=== PATIENT | female | born 1970 | race Two or more races ===

== ENCOUNTER 2017-02-13 20:07 | Emergency (ER) | payer OTHER ==
[~2017-02-13] VITALS: Ht 157.5 cm; Wt 68.0 kg
[2017-02-13 20:08] VITALS: BP 150/90
[2017-02-13] MEDS ORDERED: Ketorolac 30mg Inj IV ONE (21:00)
[2017-02-13 21:39] LABS: BASOPHILS % (AUTO) 0.6 % (0.0-2.0); LYMPHOCYTES % (AUTO) 28.1 % (20.0-45.0); MEAN CORPUSCULAR HEMOGLOBIN 33.4 PG (27.0-31.0); MEAN CORPUSCULAR HGB CONC 35.2 G/DL (32.0-36.0); MEAN CORPUSCULAR VOLUME 95 FL (80-99); MONOCYTES % (AUTO) 6.5 % (1.0-10.0); NEUTROPHILS % (AUTO) 64.8 % (45.0-75.0); PLATELET COUNT 349 K/UL (150-450); RED BLOOD COUNT 3.76 M/UL (4.20-5.40); RED CELL DISTRIBUTION WIDTH 11.8 % (11.6-14.8)
[2017-02-13 21:52] LABS: ALANINE AMINOTRANSFERASE 16 U/L (3-33); ALBUMIN/GLOBULIN RATIO 1.4 (1.0-2.7); ANION GAP 12 (5-15); ASPARTATE AMINO TRANSFERASE 17 U/L (5-40); CALCIUM 9.6 mg/dL (8.6-10.2); CARBON DIOXIDE 26 mEQ/L (20-30); CHLORIDE 99 mEQ/L (98-107); CREATININE 0.8 mg/dL (0.5-0.9); GLOMERULAR FILTRATION RATE > 60 mL/min (>60); HEMOLYSIS 5; POTASSIUM 4.1 mEQ/L (3.4-4.9); SODIUM 137 mEQ/L (135-145); TOTAL PROTEIN 7.2 g/dL (6.6-8.7)
[2017-02-13 22:00] LABS: TROPONIN I < 0.30 ng/mL (<=0.30)
[2017-02-13 22:02] LABS: CKMB 2.2 ng/mL (< 3.8)
[2017-02-13] MEDS ORDERED: Albuterol ud Inhalation HHN ONE (23:00)
[2017-02-13] MEDS ORDERED: Norco 5mg/325mg tab ORAL ONE (23:00)
--- NOTE | 2017-02-13 23:49 | Emergency Room Report ---
History of Present Illness General Chief Complaint: Pain Source: Patient, EMS Present Illness HPI This patient presents with right leg pain and coughing. The patient states that her right leg has felt painful for the past week. She's been many different hospitals for assessment for this. She also has a recurrent and repetitive cough. She denies abdominal pain. She denies nausea or vomiting. She fever chills. She has no other placed. Allergies: Coded Allergies: No Known Allergies (Unverified , 02/13/17) Patient History Past Medical History: see triage record, DM, HTN, CVA/TIA Social History: Denies: smoking, alcohol use, drug use Reviewed Nursing Documentation: PMH: Agreed, PSxH: Agreed Nursing Documentation-PMH Hx Hypertension: Yes Hx Diabetes: Yes Hx Cerebrovascular Accident: Yes - TIA Review of Systems All Other Systems: negative except mentioned in HPI Physical Exam Vital Signs Date Time Temp Pulse Resp B/P (MAP) Pulse Ox O2 Delivery O2 Flow Rate FiO2 02/13/17 20:03 99.1 123 20 150/90 99 Room Air Sp02 EP Interpretation: reviewed, normal General Appearance: no apparent distress, alert, GCS 15, non-toxic Head: normocephalic, atraumatic Eyes: bilateral eye normal inspection, bilateral eye PERRL ENT: hearing grossly normal, normal pharynx, no angioedema, normal voice Neck: full range of motion, supple/symm/no masses Respiratory: chest non-tender, lungs clear, normal breath sounds, speaking full sentences Cardiovascular #1: regular rate, rhythm, no edema Gastrointestinal: normal bowel sounds, non tender, soft, non-distended, no guarding, no rebound Rectal: deferred Musculoskeletal: back normal, gait/station normal, normal range of motion, non- tender Neurologic: alert, oriented x3, responsive, motor strength/tone normal, sensory intact, speech normal Psychiatric: judgement/insight normal, memory normal, mood/affect normal, no suicidal/homicidal ideation Skin: normal color, no rash, warm/dry, well hydrated Medical Decision Making Diagnostic Impression: Primary Impression: Leg pain Additional Impressions: Cough Chest pain ER Course Patient presents with cough, chest pain and right leg pain. She underwent ultrasound of the right lower extremity and is no evidence of DVT. Chest x-ray shows some scattered nodular findings that are nonspecific. Given the patient' s ongoing cough and chest pain, I will go ahead and order a CT of the chest. The patient's EKG has a sinus tachycardia. Patient is pending CTA of the chest. Final disposition per Dr. Mota. Plan for discharge home with acid reflux medication and cough medication if CT is negative. Laboratory Tests Test 02/13/17 21:15 White Blood Count 10.0 K/UL (4.8-10.8) Red Blood Count 3.76 M/UL (4.20-5.40) L Hemoglobin 12.6 G/DL (12.0-16.0) Hematocrit 35.7 % (37.0-47.0) L Mean Corpuscular Volume 95 FL (80-99) Mean Corpuscular Hemoglobin 33.4 PG (27.0-31.0) H Mean Corpuscular Hemoglobin Concent 35.2 G/DL (32.0-36.0) Red Cell Distribution Width 11.8 % (11.6-14.8) Platelet Count 349 K/UL (150-450) Mean Platelet Volume 6.0 FL (6.5-10.1) L Neutrophils (%) (Auto) 64.8 % (45.0-75.0) Lymphocytes (%) (Auto) 28.1 % (20.0-45.0) Monocytes (%) (Auto) 6.5 % (1.0-10.0) Eosinophils (%) (Auto) 0.0 % (0.0-3.0) Basophils (%) (Auto) 0.6 % (0.0-2.0) Sodium Level 137 mEQ/L (135-145) Potassium Level 4.1 mEQ/L (3.4-4.9) Chloride Level 99 mEQ/L (98-107) Carbon Dioxide Level 26 mEQ/L (20-30) Anion Gap 12 (5-15) Blood Urea Nitrogen 12 mg/dL (7-23) Creatinine 0.8 mg/dL (0.5-0.9) Estimate Glomerular Filtration Rate > 60 mL/min (>60) Glucose Level 141 mg/dL (74-106) H Calcium Level 9.6 mg/dL (8.6-10.2) Total Bilirubin 0.3 mg/dL (0.0-1.2) Aspartate Amino Transferase (AST) 17 U/L (5-40) Alanine Aminotransferase (ALT) 16 U/L (3-33) Alkaline Phosphatase 59 U/L (35-104) Total Creatine Kinase 79 U/L (26-140) Creatine Kinase MB 2.2 ng/mL (< 3.8) Creatine Kinase MB Relative Index 2.7 Troponin I < 0.30 ng/mL (<=0.30) Total Protein 7.2 g/dL (6.6-8.7) Albumin 4.3 g/dL (3.5-5.2) Globulin 2.9 g/dL Albumin/Globulin Ratio 1.4 (1.0-2.7) EKG Diagnostic Results Rate: tachycardiac Rhythm: other ST Segments: no acute changes Other Impression S.tachycardia Rhythm Strip Diag. Results EP Interpretation: yes Rate: 110's Rhythm: no PVC's, no ectopy Chest X-Ray Diagnostic Results Chest X-Ray Diagnostic Results : Chest X-Ray Ordered: Yes # of Views/Limited/Complete: 1 View Indication: Chest Pain EP Interpretation: Yes Interpretation: other Impression: Other Electronically Signed by: Patchy bilateral opacities/prominence. CT/MRI/US Diagnostic Results CT/MRI/US Diagnostic Results : Imaging Test Ordered: RLE US Impression No DVT Last Vital Signs Date Time Temp Pulse Resp B/P (MAP) Pulse Ox O2 Delivery O2 Flow Rate FiO2 02/13/17 23:32 113 20 99 Room Air 02/13/17 21:53 99.2 02/13/17 20:08 150/90 Referrals: [facility],REFERRING (PCP) MARITZA WATSON D.O. Feb 13, 2017 23:49
[2017-02-14] MEDS ORDERED: Promethazine/Codeine 5ml UD ORAL ONE (00:15)
[2017-02-14] MEDS ORDERED: Promethazine/Codeine 5ml UD ONE (00:20)
[2017-02-14 01:21] LABS: APPEARANCE,URINE SLIGHTLY CLOUDY; KETONES,URINE NEGATIVE (NEGATIVE); LEUKOCYTE ESTERASE ,URINE 1+ (NEGATIVE); NITRITE,URINE NEGATIVE (NEGATIVE); PH,URINE 5 (4.5-8.0); PROTEIN,URINE 1+ (NEGATIVE); UROBILINOGEN,URINE NORMAL MG/DL (0.0-1.0)
[2017-02-14 01:58] LABS: BACTERIA,URINE MODERATE /HPF; RBC,URINE 0-2 /HPF (0 - 2); SQUAMOUS EPITHELIAL CELL,UR MANY /LPF (NONE/OCC)
[2017-02-14] MEDS ORDERED: LORazepam Inj 2mg/ml 1ml IV ONE (02:45)
[2017-02-14] MEDS ORDERED: HYDROmorphone 1 MG, DiphenhydrAMINE 25 MG in NS 55 ML IV ONE (02:45)
[2017-02-14] MEDS ORDERED: LORazepam Inj 2mg/ml 1ml ONE (03:05)
[2017-02-14] MEDS ORDERED: DiphenhydrAMINE 50mg/ml Inj ONE (03:05)
[2017-02-14] MEDS ORDERED: HYDROmorphone 1mg/ml Carpuject ONE (03:05)
[2017-02-14 03:30] VITALS: BP 144/70
[2017-02-14 04:20] VITALS: BP 125/63
--- NOTE | 2017-02-14 05:35 | Emergency Room Report ---
History of Present Illness General Chief Complaint: Pain Source: Patient, EMS Present Illness Allergies: Coded Allergies: No Known Allergies (Unverified , 02/13/17) Nursing Documentation-PMH Hx Hypertension: Yes Hx Diabetes: Yes Hx Cerebrovascular Accident: Yes - TIA Physical Exam Vital Signs Date Time Temp Pulse Resp B/P (MAP) Pulse Ox O2 Delivery O2 Flow Rate FiO2 02/13/17 20:03 99.1 123 20 150/90 99 Room Air Medical Decision Making Diagnostic Impression: Primary Impression: Leg pain Additional Impressions: Cough Chest pain Neuropathy Pulmonary congestion ER Course Please refer to the initial note for the history examined the presentation at this time patient had CAT scan imaging ordered and signed out for further followup Patient's CAT scan reveals no evidence of PE the radiologist did make a mention of interstitial pulmonary edema no obvious pneumothorax or cardiomegaly Patient reevaluated and was tearful complaining of neuropathy and pain to her lower extremities she feels that there is increased swelling compared to previous Patient also reports a breathing discomfort with some shortness of breath Specially exertional/positional in nature Given these findings the patient's lack of any previous history I felt that further inpatient workup was required including cardiac ultrasonography Patient was provided with pain medication small amount of diuretics At this time requires further inpatient care Labs Test 02/13/17 21:15 02/14/17 00:30 02/14/17 02:45 White Blood Count 10.0 K/UL (4.8-10.8) Red Blood Count 3.76 M/UL (4.20-5.40) Hemoglobin 12.6 G/DL (12.0-16.0) Hematocrit 35.7 % (37.0-47.0) Mean Corpuscular Volume 95 FL (80-99) Mean Corpuscular Hemoglobin 33.4 PG (27.0-31.0) Mean Corpuscular Hemoglobin Concent 35.2 G/DL (32.0-36.0) Red Cell Distribution Width 11.8 % (11.6-14.8) Platelet Count 349 K/UL (150-450) Mean Platelet Volume 6.0 FL (6.5-10.1) Neutrophils (%) (Auto) 64.8 % (45.0-75.0) Lymphocytes (%) (Auto) 28.1 % (20.0-45.0) Monocytes (%) (Auto) 6.5 % (1.0-10.0) Eosinophils (%) (Auto) 0.0 % (0.0-3.0) Basophils (%) (Auto) 0.6 % (0.0-2.0) Sodium Level 137 mEQ/L (135-145) Potassium Level 4.1 mEQ/L (3.4-4.9) Chloride Level 99 mEQ/L (98-107) Carbon Dioxide Level 26 mEQ/L (20-30) Anion Gap 12 (5-15) Blood Urea Nitrogen 12 mg/dL (7-23) Creatinine 0.8 mg/dL (0.5-0.9) Estimat Glomerular Filtration Rate > 60 mL/min (>60) Glucose Level 141 mg/dL (74-106) Calcium Level 9.6 mg/dL (8.6-10.2) Total Bilirubin 0.3 mg/dL (0.0-1.2) Aspartate Amino Transf (AST/SGOT) 17 U/L (5-40) Alanine Aminotransferase (ALT/SGPT) 16 U/L (3-33) Alkaline Phosphatase 59 U/L (35-104) Total Creatine Kinase 79 U/L (26-140) Creatine Kinase MB 2.2 ng/mL (< 3.8) Creatine Kinase MB Relative Index 2.7 Troponin I < 0.30 ng/mL (<=0.30) Total Protein 7.2 g/dL (6.6-8.7) Albumin 4.3 g/dL (3.5-5.2) Globulin 2.9 g/dL Albumin/Globulin Ratio 1.4 (1.0-2.7) Urine Color Pale yellow Urine Appearance Slightly cloudy Urine pH 5 (4.5-8.0) Urine Specific [place] 1.010 (1.005-1.035) Urine Protein 1+ (NEGATIVE) Urine Glucose (UA) Negative (NEGATIVE) Urine Ketones Negative (NEGATIVE) Urine Occult Blood Negative (NEGATIVE) Urine Nitrite Negative (NEGATIVE) Urine Bilirubin Negative (NEGATIVE) Urine Urobilinogen Normal MG/DL (0.0-1.0) Urine Leukocyte Esterase 1+ (NEGATIVE) Urine RBC 0-2 /HPF (0 - 2) Urine WBC 2-4 /HPF (0 - 2) Urine Squamous Epithelial Cells Many /LPF (NONE/OCC) Urine Bacteria Moderate /HPF (NONE) Urine Opiates Screen Positive (NEGATIVE) Urine Barbiturates Screen Negative (NEGATIVE) Phencyclidine (PCP) Screen Negative (NEGATIVE) Urine Amphetamines Screen Negative (NEGATIVE) Urine Benzodiazepines Screen Negative (NEGATIVE) Urine Cocaine Screen Negative (NEGATIVE) Urine Marijuana (THC) Screen Negative (NEGATIVE) Pro-B-Type Natriuretic Peptide 339 pg/mL (0-125) EKG Diagnostic Results Rate: normal Rhythm: NSR ST Segments: other - nonspecific ST and T-wave changes Rhythm Strip Diag. Results EP Interpretation: yes Rate: 66 Rhythm: NSR, no PVC's, no ectopy Chest X-Ray Diagnostic Results Chest X-Ray Diagnostic Results : Chest X-Ray Ordered: Yes # of Views/Limited/Complete: 1 View EP Interpretation: Yes Interpretation: no consolidation, no pneumothorax, other - Appearance of pulmonary congestion versus interstitial disease Impression: Other - interstitial disease Electronically Signed by: Bernice Nur DO CT/MRI/US Diagnostic Results CT/MRI/US Diagnostic Results : Impression CT chest no PE, small pleural effusions interstitial pulmonary edema suspected Last Vital Signs Date Time Temp Pulse Resp B/P (MAP) Pulse Ox O2 Delivery O2 Flow Rate FiO2 02/14/17 04:20 105 14 125/63 98 Room Air 02/14/17 03:42 97.9 Status: improved Disposition: XFER SHT-TRM HOSP Condition: Improved Referrals: [facility],REFERRING (PCP) BERNICE NUR D.O. Feb 14, 2017 05:35
[2017-02-14 07:45] VITALS: BP 161/77
[2017-02-14] MEDS ORDERED: Norco 5mg/325mg tab ORAL ONE (07:45)
[2017-02-14 08:16] VITALS: BP 145/79
[2017-02-14 09:07] VITALS: BP 145/79
--- NOTE | 2017-02-14 09:16 | Diagnostic Imaging Report ---
ndication: Shortness of breath, coughing Technique: IV administration nonionic contrast. Spiral acquisitions obtained from the lung bases to the lung apices. Multiplanar and 3-D reconstructions were generated. Total dose length product 759 mGycm. CTDIvol(s) 12, 12, 37, 22 mGy. Dose reduction achieved using automated exposure control Comparison: None Findings: Pulmonary arterial opacification is adequate. No intraluminal filling defects or other findings to suggest acute pulmonary embolus demonstrated. No intraluminal filling defects or other findings to suggest acute pulmonary embolus demonstrated. No evidence of thoracic aortic aneurysm or dissection. Normal costophrenic anatomy of the great neck vessels. Normal caliber pulmonary arteries. Upper limits normal heart size. No evidence of right ventricular dilatation. There is a small right and trace left pleural effusion. There is diffuse interstitial septal thickening. No focal airspace consolidation. No masses or nodules No pericardial effusion. No mediastinal hilar mass or adenopathy. There is equivocally diffuse mild esophageal wall thickening. No axillary or chest wall mass or adenopathy. Visualized portions of the thyroid are unremarkable. The included in the upper abdominal anatomy is unremarkable. Impression: Negative for evidence of acute pulmonary embolus Small right, trace left pleural effusions. Diffuse bilateral interstitial septal thickening. Above findings suggest mild congestive heart failure This agrees with the preliminary interpretation provided overnight by [facility] teleradiology service. The CT scanner at [facility] is accredited by the [employer] and the scans are performed using protocols designed to limit radiation exposure to as low as reasonably achievable to attain images of sufficient resolution adequate for diagnostic evaluation.
--- NOTE | 2017-02-14 11:13 | Diagnostic Imaging Report ---
Indication: SOB Technique: One view of the chest Comparison: none Findings: There is mild bilateral diffuse interstitial disease and central bronchial wall thickening. The heart size is normal. No focal airspace consolidation. No effusions. Impression: Bilateral diffuse interstitial disease, acuity indeterminate. Suspect on the basis of mild interstitial edema but other etiologies possible This agrees with the preliminary interpretation provided by the emergency room physician
--- NOTE | 2017-02-14 15:46 | Cardiology Report ---
APPROVED REPORT EKG Measurement Heart [id number] Normal sinus rhythm Normal ECG
--- NOTE | 2017-02-14 15:52 | Cardiology Report ---
APPROVED REPORT EKG Measurement Heart [id number] [place] [id number] Sinus tachycardia Rightward axis Borderline ECG
--- NOTE | 2017-02-15 14:43 | Diagnostic Imaging Report ---
APPROVED REPORT CPT Code: 94779 Present Symptoms Lower Extremity Pain: Right Lower Extremity Edema: Right RIGHT LEG: Venous imaging reveals a patent deep venous system. There is no evidence of thrombus within the femoral, popliteal or tibial segments. The greater saphenous vein is also within normal limits. Doppler indicates normal spontaneous flow within these segments.
== END 2017-02-14 09:08 | disposition short-term general hospital (02) ==
LOC: EDBD 20:07 → EMR 20:58
DX: M79.604 Pain in right leg (principal); R05 Cough; R07.9 Chest pain, unspecified; I10 Essential (primary) hypertension; E11.9 Type 2 diabetes mellitus without complications; Z86.73 Personal history of transient ischemic attack (TIA), and cerebral infarction without residual deficits
CPT/HCPCS: 36415; 71010; 71275; 80053; 80300; 81003; 82550; 82553; 83880; 84484; 85025; 87086; 93005; 93971; 94640; 94664; 96365; 96375; 99285; J1170; J1200; J1885; J1940; Q9967

== ENCOUNTER 2017-07-01 10:44 | Emergency (ER) | payer OTHER ==
[2017-07-01] VITALS (7 sets, daily range): BP systolic 144–193; BP diastolic 82–103
[~2017-07-01] VITALS: Ht 154.9 cm; Wt 74.8 kg
[2017-07-01] MEDS ORDERED: Sodium Chloride 500ML 500 ML IV ONE (11:03)
[2017-07-01] MEDS ORDERED: DiphenhydrAMINE 50mg/ml Inj IVP ONE (11:15)
[2017-07-01] MEDS ORDERED: Solu-MEDROL 125mg Inj IVP ONE (11:15)
[2017-07-01] MEDS ORDERED: BACLOFEN10 MG ORAL (11:16)
[2017-07-01] MEDS ORDERED: METOPROLOL TART50 M1 ORAL (11:16)
[2017-07-01] MEDS ORDERED: IBUPROFEN600 MG ORAL (11:16)
[2017-07-01] MEDS ORDERED: ATORVASTATIN CA40 MG ORAL (11:16)
[2017-07-01] MEDS ORDERED: CYCLOBENZAPRINE10 MG ORAL (11:16)
[2017-07-01] MEDS ORDERED: OXYCODONE HCL30 MG ORAL (11:16)
[2017-07-01] MEDS ORDERED: AMITRIPTYLINE75 MG ORAL (11:16)
[2017-07-01] MEDS ORDERED: HYDROCODON-ACE1 EA15 ORAL (11:16)
[2017-07-01] MEDS ORDERED: LYRICA100 MG ORAL (11:16)
[2017-07-01] MEDS ORDERED: BASAGLAR K100 UNIT/1 SQ (11:16)
[2017-07-01] MEDS ORDERED: NAPROXEN375 M2 ORAL (11:16)
[2017-07-01] MEDS ORDERED: CYMBALTA60 MG ORAL (11:16)
[2017-07-01] MEDS ORDERED: traMADol 50mg tab ORAL ONE (11:45)
[2017-07-01 11:47] LABS: APPEARANCE,URINE SLIGHTLY CLOUDY; BILIRUBIN, URINE NEGATIVE (NEGATIVE); COLOR,URINE PALE YELLOW; GLUCOSE, URINE (UA) NEGATIVE (NEGATIVE); KETONES,URINE NEGATIVE (NEGATIVE); LEUKOCYTE ESTERASE ,URINE 1+ (NEGATIVE); NITRITE,URINE NEGATIVE (NEGATIVE); PH,URINE 6 (4.5-8.0); PROTEIN,URINE 1+ (NEGATIVE); UROBILINOGEN,URINE NORMAL MG/DL (0.0-1.0)
[2017-07-01 11:55] LABS: BASOPHILS % (AUTO) 0.6 % (0.0-2.0); EOSINOPHILS % (AUTO) 0.1 % (0.0-3.0); HEMATOCRIT 32.5 % (37.0-47.0); HEMOGLOBIN 10.8 G/DL (12.0-16.0); LYMPHOCYTES % (AUTO) 25.2 % (20.0-45.0); MEAN CORPUSCULAR VOLUME 88 FL (80-99); MONOCYTES % (AUTO) 7.7 % (1.0-10.0); NEUTROPHILS % (AUTO) 66.4 % (45.0-75.0); PLATELET COUNT 420 K/UL (150-450); RED BLOOD COUNT 3.69 M/UL (4.20-5.40); RED CELL DISTRIBUTION WIDTH 12.7 % (11.6-14.8); WHITE BLOOD COUNT 6.9 K/UL (4.8-10.8)
--- NOTE | 2017-07-01 11:59 | Diagnostic Imaging Report ---
Indication: Reason For Exam: SOB Technique: XRAY Chest 1v Comparison: 02/13/2017. Findings: The cardiomediastinal silhouette is normal. The lungs are clear. There is no evidence of pleural fluid. The bones are unremarkable. Impression: Normal chest.
[2017-07-01 12:01] LABS: ANION GAP 6 mmol/L (5-15); BLOOD UREA NITROGEN 6 mg/dL (7-18); CALCIUM 8.9 MG/DL (8.5-10.1); CARBON DIOXIDE 29 MMOL/L (21-32); CHLORIDE 105 MMOL/L (98-107); CREATININE 0.7 MG/DL (0.55-1.30); POTASSIUM 4.2 MMOL/L (3.5-5.1); SODIUM 140 MMOL/L (136-145)
[2017-07-01 12:15] LABS: ALANINE AMINOTRANSFERASE 18 U/L (12-78); ALBUMIN 2.7 G/DL (3.4-5.0); ALBUMIN/GLOBULIN RATIO 0.7 (1.0-2.7); ALKALINE PHOSPHATASE 86 U/L (46-116); ASPARTATE AMINO TRANSFERASE 16 U/L (15-37); BILIRUBIN,TOTAL 0.2 MG/DL (0.2-1.0); CKMB 0.7 NG/ML (0.0-3.6); CREATINE KINASE 55 U/L (26-308)
[2017-07-01] MEDS ORDERED: Lyrica 50mg cap ORAL ONE (13:00)
[2017-07-01] MEDS ORDERED: Norco 5mg/325mg tab ORAL ONE (14:15)
--- NOTE | 2017-07-01 14:20 | Emergency Room Report ---
History of Present Illness General Chief Complaint: General Complaint Source: Patient, Medical Record Present Illness HPI 47-year-old female presents ED for evaluation. Patient states she is experiencing facial swelling and shortness of breath. She says she was recently prescribed oxycodone by her PMD. Patient has history of fibromyalgia. States that the symptoms started shortly after taking the oxycodone. Denies any known food or drug allergies. Denies any chest pain. Patient's history of hypertension diabetes. Also complaining of generalized body pain which is typical of her fibromyalgia. Throbbing, 8/10, nonradiating. Patient states she was recently admitted for chest pain and another hospital and also has similar swelling to her face and hands. Patient does not know the reason why. No aggravating or leading factors. Denies any other associated symptoms Allergies: Coded Allergies: No Known Allergies (Unverified , 02/13/17) Patient History Past Medical History: DM, HTN, CVA/TIA Past Surgical History: none Pertinent Family History: none Social History: Denies: smoking, alcohol use, drug use Last Menstrual Period: 06/15/17 Now: No Immunizations: UTD Reviewed Nursing Documentation: PMH: Agreed, PSxH: Agreed Nursing Documentation-PMH Past Medical History: No History, Except For Hx Hypertension: Yes Hx Diabetes: Yes Hx Cerebrovascular Accident: Yes - TIA Review of Systems All Other Systems: negative except mentioned in HPI Physical Exam Vital Signs Date Time Temp Pulse Resp B/P (MAP) Pulse Ox O2 Delivery O2 Flow Rate FiO2 07/01/17 10:48 97.9 96 18 180/91 99 Room Air Sp02 EP Interpretation: reviewed, normal General Appearance: alert, GCS 15, non-toxic, mild distress Head: normocephalic, atraumatic Eyes: bilateral eye normal inspection, bilateral eye PERRL ENT: hearing grossly normal, normal pharynx, no angioedema, normal voice Neck: full range of motion, supple/symm/no masses Respiratory: chest non-tender, lungs clear, normal breath sounds, speaking full sentences Cardiovascular #1: regular rate, rhythm, no edema Cardiovascular #2: 2+ carotid (R), 2+ carotid (L), 2+ radial (R), 2+ radial (L) , 2+ dorsalis pedis (R), 2+ dorsalis pedis (L) Gastrointestinal: normal bowel sounds, non tender, soft, non-distended, no guarding, no rebound Rectal: deferred Genitourinary: normal inspection, no CVA tenderness Musculoskeletal: back normal, gait/station normal, normal range of motion, non- tender Neurologic: alert, oriented x3, responsive, motor strength/tone normal, sensory intact, speech normal Psychiatric: judgement/insight normal, memory normal, mood/affect normal, no suicidal/homicidal ideation Reflexes: 3+ bicep (R), 3+ bicep (L), 3+ tricep (R), 3+ tricep (L), 3+ knee (R) , 3+ knee (L) Skin: normal color, no rash, warm/dry, well hydrated Lymphatic: no adenopathy Medical Decision Making Diagnostic Impression: Primary Impression: Hypertensive urgency Additional Impressions: Facial swelling Fibromyalgia ER Course Hospital Course 47 year-old female presents ED patient swelling after taking medication. SOB Differential diagnoses include: angioedema, allergic reaction, ACS/WA, CHF Clinical course Patient placed on stretcher. on diagnostic cardiac sonographer. After initial history and physical I ordered labs, EKG, chest x-ray, IVFs, benedryl, solumedrol labs reviewed- no leukocytosis, hb/hct stable, electrolytes ok, trop negative, BNP > 2000 EKG- NSR, no acute ischemic changes interpreted by me Chest x-ray- no acute process On reassessment patient states she did not feel better. Still has pain. Still feels short of breath. No signs of labored breathing. No signs of injury or or compromise. Blood pressure is elevated. Not responding to blood pressure medications initially. I did not appreciate the facial swelling to the patient describes. However we will admit patient for further workup because of insurance patient will be transferred I. I feel this is a highly complex case requiring extensive working including EKG/Rhythm strip, Xray/CT/US, Blood/urine lab work, repeat exams while in ED, and administration of strong opiates/narcotics for pain control, admission to hospital or close patient follow up. Diagnosis - hypertensive urgency, facial swelling, fibromyalgia transferred in serious condition Labs Test 07/01/17 11:05 White Blood Count 6.9 K/UL (4.8-10.8) Red Blood Count 3.69 M/UL (4.20-5.40) Hemoglobin 10.8 G/DL (12.0-16.0) Hematocrit 32.5 % (37.0-47.0) Mean Corpuscular Volume 88 FL (80-99) Mean Corpuscular Hemoglobin 29.2 PG (27.0-31.0) Mean Corpuscular Hemoglobin Concent 33.2 G/DL (32.0-36.0) Red Cell Distribution Width 12.7 % (11.6-14.8) Platelet Count 420 K/UL (150-450) Mean Platelet Volume 4.8 FL (6.5-10.1) Neutrophils (%) (Auto) 66.4 % (45.0-75.0) Lymphocytes (%) (Auto) 25.2 % (20.0-45.0) Monocytes (%) (Auto) 7.7 % (1.0-10.0) Eosinophils (%) (Auto) 0.1 % (0.0-3.0) Basophils (%) (Auto) 0.6 % (0.0-2.0) Urine Color Pale yellow Urine Appearance Slightly cloudy Urine pH 6 (4.5-8.0) Urine Specific [place] 1.015 (1.005-1.035) Urine Protein 1+ (NEGATIVE) Urine Glucose (UA) Negative (NEGATIVE) Urine Ketones Negative (NEGATIVE) Urine Occult Blood 2+ (NEGATIVE) Urine Nitrite Negative (NEGATIVE) Urine Bilirubin Negative (NEGATIVE) Urine Urobilinogen Normal MG/DL (0.0-1.0) Urine Leukocyte Esterase 1+ (NEGATIVE) Urine RBC 2-4 /HPF (0 - 2) Urine WBC 10-15 /HPF (0 - 2) Urine Squamous Epithelial Cells Many /LPF (NONE/OCC) Urine Bacteria Few /HPF (NONE) Sodium Level 140 MMOL/L (136-145) Potassium Level 4.2 MMOL/L (3.5-5.1) Chloride Level 105 MMOL/L (98-107) Carbon Dioxide Level 29 MMOL/L (21-32) Anion Gap 6 mmol/L (5-15) Blood Urea Nitrogen 6 mg/dL (7-18) Creatinine 0.7 MG/DL (0.55-1.30) Estimat Glomerular Filtration Rate > 60 mL/min (>60) Glucose Level 166 MG/DL (74-106) Calcium Level 8.9 MG/DL (8.5-10.1) Total Bilirubin 0.2 MG/DL (0.2-1.0) Aspartate Amino Transf (AST/SGOT) 16 U/L (15-37) Alanine Aminotransferase (ALT/SGPT) 18 U/L (12-78) Alkaline Phosphatase 86 U/L (46-116) Total Creatine Kinase 55 U/L (26-308) Creatine Kinase MB 0.7 NG/ML (0.0-3.6) Creatine Kinase MB Relative Index 1.2 Troponin I 0.000 ng/mL (0.000-0.056) Pro-B-Type Natriuretic Peptide 2362 pg/mL (0-125) Total Protein 6.8 G/DL (6.4-8.2) Albumin 2.7 G/DL (3.4-5.0) Globulin 4.1 g/dL Albumin/Globulin Ratio 0.7 (1.0-2.7) EKG Diagnostic Results Rate: normal Rhythm: NSR ST Segments: no acute changes ASA given to the pt in ED: No Rhythm Strip Diag. Results EP Interpretation: yes Rhythm: NSR, no PVC's, no ectopy Chest X-Ray Diagnostic Results Chest X-Ray Diagnostic Results : Chest X-Ray Ordered: Yes # of Views/Limited/Complete: 1 View Indication: Shortness of Breath EP Interpretation: Yes Interpretation: no consolidation, no effusion, no pneumothorax, no acute cardiopulmonary disease Impression: No acute disease Electronically Signed by: Electronically signed by Ricky Wilson MD Last Vital Signs Date Time Temp Pulse Resp B/P (MAP) Pulse Ox O2 Delivery O2 Flow Rate FiO2 07/01/17 13:27 98.6 103 15 144/92 100 Room Air Status: improved Disposition: ADMITTED INPATIENT Condition: Serious Referrals: [facility],REFERR[facility] (PCP) RICKY WILSON M.D. Jul 01, 2017 14:20
[2017-07-01] MEDS ORDERED: fentaNYL 100 mcg/2 mL IV ONE (15:30)
[2017-07-01] MEDS ORDERED: LORazepam Inj 2mg/ml 1ml IV ONE (15:30)
--- NOTE | 2017-07-16 14:04 | Cardiology Report ---
APPROVED REPORT EKG Measurement Heart [id number] Normal sinus rhythm Normal ECG
== END 2017-07-01 17:36 | disposition short-term general hospital (02) ==
LOC: EMR 11:18
DX: I16.0 Hypertensive urgency (principal); R60.0 Localized edema; M79.7 Fibromyalgia; I10 Essential (primary) hypertension; E11.9 Type 2 diabetes mellitus without complications; Z86.73 Personal history of transient ischemic attack (TIA), and cerebral infarction without residual deficits
CPT/HCPCS: 36415; 71045; 80053; 81003; 82550; 82553; 82962; 83880; 84484; 85025; 87086; 93005; 99285; J0360; J1200; J2930; J3010; J7040; S0028

== ENCOUNTER 2017-09-08 23:23 | Emergency (ER) | payer OTHER ==
[~2017-09-08] VITALS: Ht 154.9 cm; Wt 85.7 kg
[~2017-09-08 23:23] MED LIST: AMITRIPTYLINE75 MG ORAL; ATORVASTATIN CA40 MG ORAL; BACLOFEN10 MG ORAL; BASAGLAR K100 UNIT/1 SQ; CYCLOBENZAPRINE10 MG ORAL; CYMBALTA60 MG ORAL; HYDROCODON-ACE1 EA15 ORAL; IBUPROFEN600 MG ORAL; LYRICA100 MG ORAL; METOPROLOL TART50 M1 ORAL; NAPROXEN375 M2 ORAL; OXYCODONE HCL30 MG ORAL
[2017-09-09] MEDS ORDERED: Hydromorphone 0.5mg/0.5ml inj IVP ONE
[2017-09-09 00:09] LABS: BASOPHILS % (AUTO) 0.3 % (0.0-2.0); EOSINOPHILS % (AUTO) 0.1 % (0.0-3.0); HEMATOCRIT 32.6 % (37.0-47.0); HEMOGLOBIN 10.9 G/DL (12.0-16.0); MEAN CORPUSCULAR VOLUME 86 FL (80-99); MONOCYTES % (AUTO) 5.9 % (1.0-10.0); NEUTROPHILS % (AUTO) 79.6 % (45.0-75.0); PLATELET COUNT 393 K/UL (150-450); RED BLOOD COUNT 3.79 M/UL (4.20-5.40); RED CELL DISTRIBUTION WIDTH 14.5 % (11.6-14.8)
--- NOTE | 2017-09-09 00:10 | Emergency Room Report ---
History of Present Illness General Chief Complaint: General Complaint Source: Patient, Medical Record, EMS Present Illness HPI This is a 47-year-old female with a history of chronic pain secondary to fibromyalgia. She also has a history of high blood pressure. She presents with chief complaint of generalized body pain and swelling. Has been ongoing for the last 2-3 days. No trauma. She has been out of her [place] for the last 3 -4 days because the pharmacy have been unable to fill her prescription for 120 tablets. She denies any diarrhea. Just body pain and generalized edema. She' s taken her Lasix but is not helping. Pain is 10 out of 10. Worse with movement. No shortness of breath. No fever chills. No nausea no vomiting. Allergies: Coded Allergies: METFORMIN (Verified Allergy, Unknown, Bloating, 09/08/17) Patient History Past Medical History: see triage record, old chart reviewed, DM, HTN Past Surgical History: other Pertinent Family History: none Social History: Denies: smoking Last Menstrual Period: 08/13/2017 Now: No : 2 Para: 2 Immunizations: other Reviewed Nursing Documentation: PMH: Agreed; PSxH: Agreed Nursing Documentation-PMH Hx Hypertension: Yes Hx Diabetes: Yes Hx Cerebrovascular Accident: Yes - TIA Review of Systems Eye: Denies: eye pain, blurred vision ENT: Denies: ear pain, nose congestion, throat swelling Respiratory: Denies: cough, shortness of breath Cardiovascular: Denies: chest pain, palpitations Gastrointestinal: Denies: abdominal pain, diarrhea, nausea, vomiting Musculoskeletal: Reports: back pain, joint pain, joint swelling, muscle stiffness Skin: Denies: rash Neurological: Denies: headache, numbness Endocrine: Denies: increased thirst, increased urine Hematologic/Lymphatic: Denies: easy bruising All Other Systems: negative except mentioned in HPI Physical Exam Vital Signs Date Time Temp Pulse Resp B/P (MAP) Pulse Ox O2 Delivery O2 Flow Rate FiO2 09/08/17 23:36 98.4 95 18 123/72 95 Room Air 98.4 vitals normal Sp02 EP Interpretation: reviewed, normal General Appearance: well appearing, no apparent distress, alert Head: normocephalic, atraumatic Eyes: bilateral eye PERRL, bilateral eye EOMI ENT: hearing grossly normal, normal pharynx Neck: full range of motion, supple, no meningismus Respiratory: chest non-tender, lungs clear, normal breath sounds Cardiovascular #1: regular rate, rhythm, no murmur Gastrointestinal: normal bowel sounds, non tender, no mass, no organomegaly, no bruit, non-distended Musculoskeletal: back normal, gait/station normal, normal range of motion, other - 1+ edema bilaterally Neurologic: alert, oriented x3 Psychiatric: mood/affect normal Skin: warm/dry Medical Decision Making Diagnostic Impression: Primary Impression: Chronic pain Qualified Codes: G89.4 - Chronic pain syndrome Additional Impressions: Peripheral edema Opioid dependence Qualified Codes: F11.20 - Opioid dependence, uncomplicated ER Course Patient presents with chronic pain. She gets about 120 tablets of [place] every 2 months. Because of the amount she said that the pharmacist cant fill it yet. I suspect there is some withdrawal symptoms to this. Also a lot of psychogenic issue that causing more pain. She keeps asking for pain medication. I gave her 2 doses of Dilaudid and [place] and is not helping her. She said that she keep all of her doctor appointments and no one seems to know what's wrong with her. Labs are unremarkable. Her urinalysis is equivocal. CT scan still pending but patient does not want to wait for the results. We'll discharge home. Patient doesn't believe the blood works are unremarkable. She wanted different medication to help with her symptoms. I explained to the patient that part of the symptom and problem may be secondary to opiate dependency and withdrawal. She started taking muscle relaxer but she wants something different. I told patient that she can follow-up with her doctor for that. Patient said that she started taking Lasix at home. She does have edema and generalized anasarca. Her LFTs in the past have been normal. Oxygenation is 100 percent on room air. No respiratory complaints and her lungs are clear. I tried explaining to the patient that I do not have an answer for all of her symptoms that she is presenting with. Sometimes we cannot have an answer in the ER ago with a workup. Recommend that she follow up as an outpatient. Patient was frustrated that I cannot give her a clear etiology for her problems. She ripped out her IV and was cursing at the nursing staff and myself. Laboratory Tests Test 09/09/17 00:00 Urine Color Pale yellow Urine Appearance Slightly cloudy Urine pH 7 (4.5-8.0) Urine Specific [place] 1.010 (1.005-1.035) Urine Protein Negative (NEGATIVE) Urine Glucose (UA) 3+ (NEGATIVE) H Urine Ketones Negative (NEGATIVE) Urine Occult Blood Negative (NEGATIVE) Urine Nitrite Negative (NEGATIVE) Urine Bilirubin Negative (NEGATIVE) Urine Urobilinogen Normal MG/DL (0.0-1.0) Urine Leukocyte Esterase Negative (NEGATIVE) Urine RBC 0-2 /HPF (0 - 2) Urine WBC 2-4 /HPF (0 - 2) Urine Squamous Epithelial Cells Moderate /LPF (NONE/OCC) H Urine Bacteria Moderate /HPF (NONE) H Sodium Level 134 MMOL/L (136-145) L Potassium Level 4.7 MMOL/L (3.5-5.1) Chloride Level 98 MMOL/L (98-107) Carbon Dioxide Level 31 MMOL/L (21-32) Anion Gap 5 mmol/L (5-15) Blood Urea Nitrogen 17 mg/dL (7-18) Creatinine 1.4 MG/DL (0.55-1.30) H Estimat Glomerular Filtration Rate 40.3 mL/min (>60) Glucose Level 249 MG/DL (74-106) H Calcium Level 7.9 MG/DL (8.5-10.1) L Lab Results Impression labs unremarkable CT/MRI/US Diagnostic Results CT/MRI/US Diagnostic Results : Imaging Test Ordered: CT abdomen and pelvis Impression Read by radiologist. Constipation. Anasarca. Distended stomach with retained gastric contents. Last Vital Signs Date Time Temp Pulse Resp B/P (MAP) Pulse Ox O2 Delivery O2 Flow Rate FiO2 09/09/17 00:05 98.4 09/08/17 23:36 95 18 123/72 95 Room Air Status: improved Disposition: HOME, SELF-CARE Condition: Stable Scripts Ibuprofen* (MOTRIN*) 600 Mg Tablet 600 MG ORAL THREE TIMES A DAY, #30 TAB 0 Refills Prov: GRACE LEWIS M.D. 09/09/17 Referrals: [facility],REFERRING (PCP) Additional Instructions: follow-up your doctor in 2-3 days. You may benefit from referral to see a pain specialist. Return if symptom worsen. GRACE LEWIS M.D. Sep 09, 2017 00:10
[2017-09-09 00:33] LABS: APPEARANCE,URINE SLIGHTLY CLOUDY; BILIRUBIN, URINE NEGATIVE (NEGATIVE); COLOR,URINE PALE YELLOW; GLUCOSE, URINE (UA) 3+ (NEGATIVE); KETONES,URINE NEGATIVE (NEGATIVE); LEUKOCYTE ESTERASE ,URINE NEGATIVE (NEGATIVE); NITRITE,URINE NEGATIVE (NEGATIVE); PH,URINE 7 (4.5-8.0); PROTEIN,URINE NEGATIVE (NEGATIVE); UROBILINOGEN,URINE NORMAL MG/DL (0.0-1.0)
[2017-09-09 00:36] LABS: ANION GAP 5 mmol/L (5-15); BLOOD UREA NITROGEN 17 mg/dL (7-18); CALCIUM 7.9 MG/DL (8.5-10.1); CARBON DIOXIDE 31 MMOL/L (21-32); CHLORIDE 98 MMOL/L (98-107); CREATININE 1.4 MG/DL (0.55-1.30); POTASSIUM 4.7 MMOL/L (3.5-5.1); SODIUM 134 MMOL/L (136-145)
[2017-09-09] MEDS ORDERED: Norco 5mg/325mg tab ORAL ONE (00:45)
[2017-09-09] MEDS ORDERED: HYDROmorphone 1mg/ml Carpuject IVP ONE ×2 (01:15)
[2017-09-09 01:22] VITALS: BP 127/65
[2017-09-09] MEDS ORDERED: IBUPROFEN600 MG ORAL (02:16)
[2017-09-09 02:20] VITALS: BP 130/68
--- NOTE | 2017-09-09 17:13 | Diagnostic Imaging Report ---
Indication: Reason For Exam: ABD PAIN Technique: Continuous helical scanning was performed without any contrast material from the diaphragms through the pelvis per specific request of the ordering physician. Axial, sagittal, and coronal images were generated. Dose: Total Dose Length Product - DLP 06/15/[address] Dose Index - CTDIvol(s) 29.62 mGy. Automated exposure control was utilized for dose reduction. Comparison: None Findings: Lack of any contrast limits evaluation. There are mild groundglass densities in the bases. There is some edema in the flanks bilaterally. Liver is normal. The spleen is unremarkable. Gallbladder is normal. The pancreas is unremarkable. Adrenal glands are normal. Aorta and inferior vena cava are normal caliber. Minimal calcification is noted in the aorta. The stomach is mildly distended with food and liquid. The kidneys demonstrate mild dilatation of the collecting systems. The ureters are also mildly prominent bilaterally. There is no retroperitoneal adenopathy. Mild groundglass densities in the lung bases, nonspecific. Moderate fecal material is noted throughout the colon. Appendix is normal. Uterus is unremarkable. The bladder is distended. There is a cystic mass in the right ovary measuring 3.5 cm. It may be a 2 cm cyst in the left ovary. Remainder the study is unremarkable. Impression: Distended bladder. Mildly dilated collecting systems of both kidneys, likely secondary to the distended bladder. Minimal atherosclerotic change. Moderate fecal material in colon. 3.5 cm cystic mass in the right ovary. Possible 2 cm cyst in the left ovary. Ultrasound may be helpful for confirmation. Mild subcutaneous edema in the flanks. The above report is concordant with preliminary reading by [facility] . The CT scanner at [facility] is accredited by the [employer] and the scans are performed using protocols designed to limit radiation exposure to as low as reasonably achievable to attain images of sufficient resolution adequate for diagnostic evaluation. AP
== END 2017-09-09 02:23 | disposition home or self-care (01) ==
LOC: EMR 23:42
DX: G89.29 Other chronic pain (principal); M79.7 Fibromyalgia; R60.0 Localized edema; F11.20 Opioid dependence, uncomplicated; E11.9 Type 2 diabetes mellitus without complications; I10 Essential (primary) hypertension; Z88.8 Allergy status to other drugs, medicaments and biological substances
CPT/HCPCS: 36415; 74176; 80048; 81001; 82962; 85025; 87086; 96374; 96375; 99284; J1170; J1940